=== PATIENT | male | born 1985 | race Hispanic/Latino ===

== ENCOUNTER 2018-12-21 21:40 | Emergency (ER) | payer SELFPAY ==
[2018-12-21] MEDS ORDERED: Acetaminophen 500 MG TAB ONE (21:53)
[2018-12-21 22:04] LABS: #Lymphocytes 2.2 thou/uL (1.20-3.40); #Monocytes 0.9 thou/uL (0.11-0.59); #Neutrophils 11.6 thou/uL (1.40-6.50); %Basophils 0.2 % (0.0-1.0); %Eosinophils 0.2 % (0.0-10.0); %Monocytes 6.3 % (0.0-10.0); %Neutrophils 78.3 % (42.0-75.0); Hemoglobin 15.3 g/dL (14.0-18.0); Mean Corpuscular HGB CONC 35.9 g/dL (32.0-36.0); Mean Corpuscular Hemoglobin 30.8 pg (27.0-31.0); Mean Corpuscular Volume 85.8 fL (78.0-98.0); Mean Platelet Volume 7.6 fL (7.4-10.4); Platelet Count 259 thou/uL (130-400); RBC Distribution Width 11.6 % (11.5-14.5); Red Blood Cell (RBC) Count 4.99 mill/uL (4.70-6.10); White Blood Cell (WBC) Count 14.8 thou/uL (4.8-10.8)
[2018-12-21 22:17] LABS: ALT (SGPT) 38 U/L (8-55); AST (SGOT) 23 U/L (5-34); Albumin 4.8 g/dL (3.5-5.0); Alkaline Phosphatase 134 U/L (40-150); Anion Gap 12 mmol/L (10-20); BUN (Urea Nitrogen) 18 mg/dL (8.9-20.6); Bilirubin, Total 1.1 mg/dL (0.2-1.2); Calc. Creatinine Clearance 0 mL/min (70-130); Calcium 9.5 mg/dL (7.8-10.44); Carbon Dioxide 26 mmol/L (22-29); Chloride 102 mmol/L (98-107); Estimated GFR-MDRD Greater than 90; Glucose 117 mg/dL (70-105); Potassium 3.6 mmol/L (3.5-5.1); Protein, Total 7.8 g/dL (6.0-8.3); Sodium 136 mmol/L (136-145)
[2018-12-21] MEDS ORDERED: Ondansetron PF 4 MG/2 ML Vial ONE (22:48)
[2018-12-22 00:31] LABS: Color Of CSF Supernatant COLORLESS (Colorless); Tube # 2; Unspun CSF Color COLORLESS (Colorless)
[2018-12-22 00:42] LABS: CSF Source CSF; Clarity Clear (Clear); RBC Count - Manual 11 /cumm (None Seen); Tube # 4; WBC/NonHematics Count - Manual 0 /cumm (0-5)
[2018-12-22 00:49] LABS: CSF, Glucose 68 mg/dl (40-70); CSF, Protein 23 mg/dL (15-40)
[2018-12-22 00:52] LABS: CSF Source CSF; Clarity Clear (Clear); RBC Count - Manual 1075 /cumm (None Seen); Tube # 1; WBC/NonHematics Count - Manual 1 /cumm (0-5)
--- NOTE | 2018-12-22 09:33 | RAD ---
PORTABLE UPRIGHT FRONTAL CHEST RADIOGRAPH: DATE: 12/21/2018. COMPARISON: None. HISTORY: Fever. FINDINGS: Lungs are clear. Heart and mediastinal contours are unremarkable. IMPRESSION: No acute findings. POS: [facility]
--- NOTE | 2018-12-22 09:33 | CT ---
CT BRAIN WITHOUT CONTRAST: 12/21/2018 HISTORY: Weakness and anxiety. COMPARISON: None. TECHNIQUE: Axial CT imaging at 5 mm intervals, from the vertex through the skull base, without contrast. FINDINGS: The imaged paranasal sinuses and mastoid air cells demonstrate polypoid mucosal thickening of the lef t frontal sinus. There is no displaced calvarial fracture. There is no intracranial hemorrhage, mid line shift, mass effect, or ventricular enlargement. IMPRESSION: No acute findings. POS: [facility]
--- NOTE | 2018-12-22 09:46 | CT ---
CTA HEAD UTILIZING IV CONTRAST AND 3D REFORMATTED IMAGING: COMPARISON: Noncontrast CT brain performed earlier on 12/21/2018, at 10:24 p.m. FINDINGS: No hemodynamically significant stenosis, occlusion, or aneurysmal formation is demonstrated. The rig ht vertebral artery is diminutive and terminates as the right PICA. The left vertebral artery is dom inant. No abnormal enhancement is evident. The septum pellucidum and third ventricle are midline. There are air-fluid levels within the sphenoid sinus and maxillary sinus, suspicious for acute sinusi tis. IMPRESSION: 1. No hemodynamically significant stenosis, occlusion, or aneurysmal formation demonstrated. 2. Air-fluid levels within the maxillary sinus and sphenoid sinus, suspicious for acute sinusitis. POS: [facility]
[2018-12-22] MEDS ORDERED: ISOVUE-370 76%-LOCM 1 ML ONE (14:03)
== END 2018-12-22 02:56 | disposition home or self-care (01) ==
LOC: ERS 21:40
DX: J01.90 Acute sinusitis, unspecified (principal); R11.0 Nausea; R51 Headache
CPT/HCPCS: 62270; 70450; 70496; 71045; 80053; 82945; 83605; 84157; 85025; 87040; 87070; 87205; 87804; 89051; 96361; 96374; J2405; Q9966

== ENCOUNTER 2019-07-10 12:06 | Emergency (ER) | payer SELFPAY ==
--- NOTE | 2019-07-10 12:45 | RAD ---
Exam: Right ankle 3 views: HISTORY: Right ankle pain following a twisting injury Minimally displaced vertically oblique fracture through the distal fibula. Soft tissue swelling. Scat tered areas of circumscribed soft tissue calcifications or ossifications in the mid lower leg anteriorly and medially. IMPRESSION: Very minimally displaced oblique fracture through the distal fibula with soft tissue swelling.
== END 2019-07-10 13:29 | disposition home or self-care (01) ==
LOC: ERS 12:06
DX: S82.431A Displaced oblique fracture of shaft of right fibula, initial encounter for closed fracture (principal); X50.0XXA Overexertion from strenuous movement or load, initial encounter; Y93.66 Activity, soccer
CPT/HCPCS: 29515

== ENCOUNTER 2024-03-16 14:13 | Emergency (ER) | payer OTHER, SELFPAY ==
[~2024-03-16 14:13] MED LIST: Iopamidol-370 76% 500 ML MDV (1 ML CHARGE) ONE
[2024-03-16] MEDS ORDERED: Ketorolac Tromethamine 30 MG (1 mL) VIAL ONE (15:22)
[2024-03-16] MEDS ORDERED: Acetaminophen 500 MG TAB ONE (15:22)
[2024-03-16 16:14] LABS: #Basophils Less than 0.03 10x3/uL (0.0-0.2); %Basophils 0.2 % (0.0-1.0); %Eosinophils 1.3 % (0.0-10.0); %Monocytes 13.4 % (0.0-10.0); %Neutrophils 75.9 % (42.0-75.0); Hematocrit 36.8 % (42.0-52.0); Hemoglobin 13.3 g/dL (14.0-18.0); Mean Corpuscular HGB CONC 36.1 g/dL (32.0-36.0); Mean Corpuscular Hemoglobin 30.6 pg (27.0-31.0); Mean Corpuscular Volume 84.8 fL (78.0-98.0); Mean Platelet Volume 10.3 fL (7.4-10.4); Platelet Count 215 10x3/uL (130-400); RBC Distribution Width 11.9 % (11.5-14.5); Red Blood Cell (RBC) Count 4.34 mill/uL (4.70-6.10)
[2024-03-16 16:20] LABS: Influenza A by NAA Not Detected (NotDetected); Influenza B by NAA Not Detected (NotDetected); SARS-CoV-2 NAA Rapid Test Not Detected (NotDetected)
[2024-03-16 16:30] LABS: ALT (SGPT) 38 U/L (8-55); AST (SGOT) 26 U/L (5-34); Albumin 3.6 g/dL (3.5-5.0); Alkaline Phosphatase 103 U/L (40-110); Anion Gap 13 mmol/L (10-20); BUN (Urea Nitrogen) 19 mg/dL (8.9-20.6); Bilirubin, Total 0.6 mg/dL (0.2-1.2); Calc. Creatinine Clearance 0 mL/min (70-130); Calcium 8.5 mg/dL (7.8-10.44); Carbon Dioxide 23 mmol/L (22-29); Chloride 105 mmol/L (98-107); Estimated GFR 123; Globulin 2.7 g/dL (2.4-3.5); Glucose 99 mg/dL (70-105); Potassium 3.9 mmol/L (3.5-5.1); Protein, Total 6.3 g/dL (6.0-8.3); Sodium 137 mmol/L (136-145)
[2024-03-16 17:54] LABS: Bacteria/HPF None Seen HPF (None Seen); Bilirubin Negative (Negative); Blood, Urine Trace (Negative); CAUTI Indications for Culture Acute Hematuria; Clarity Clear (Clear); Glucose, Urine (Dipstick) Normal (Negative); Ketone, Urine Negative (Negative); Leukocyte Negative Leu/uL (Negative); Nitrite Negative (Negative); Protein, Urine (Dipstick) 100 mg/dL (Neg-Trace); RBC/HPF 0-3 HPF (0-3); Specific Gravity, Urine 1.036 (1.002-1.036); Squamous Epithelial None Seen HPF (0-3); WBC/HPF 0-3 HPF (0-3)
[2024-03-16 17:59] LABS: Urine Culture Reflex No No
== END 2024-03-16 18:58 | disposition home or self-care (01) ==
LOC: ERS 14:13
DX: R05.1 Acute cough (principal); R10.9 Unspecified abdominal pain; R50.9 Fever, unspecified
CPT/HCPCS: 71045; 74177; 80053; 81001; 83605; 85025; 87081; 87430; 96361; 96374; J1885; Q9967